=== PATIENT | female | born 1995 | race American Indian/Alaskan Native ===

== ENCOUNTER 2019-04-18 08:53 | Inpatient (IN) | payer MEDICAID ==
[2019-04-18] MEDS ORDERED: MINERAL OIL 30 ML ORAL LIQD PO PRN (10:00)
[2019-04-18] MEDS ORDERED: OXYTOCIN DRIP 30 UNITS/500 ML BAG IV SCH ×2 (10:00)
[2019-04-18] MEDS ORDERED: ePHEDrine SULFATE 50 MG/1 ML INJ IV PRN ×2 (10:00→12:55)
[2019-04-18] MEDS ORDERED: TERBUTALINE 1 MG/1 ML INJ IVP PRN (10:00)
[2019-04-18] MEDS ORDERED: LIDOCAINE (2%) 20 MG/1 ML VIAL 20 ML MDV INFILTRATI NR (10:00)
[2019-04-18] MEDS ORDERED: TERBUTALINE 1 MG/1 ML INJ SUB-Q PRN (10:00)
[2019-04-18] MEDS ORDERED: OXYTOCIN 20 UNIT/1000ML DRIP 20 UNITS/1,000 ML BAG IV SCH ×2 (10:00→11:00)
[2019-04-18] MEDS ORDERED: LACTATED RINGERS 1,000 ML IV SCH ×2 (10:00→11:00)
--- NOTE | 2019-04-18 10:07 | History and Physical Report ---
History of Present Illness Date of examination: 04/18/19 Date of admission: 04/18/19 08:54 Chief complaint: I'M having contractions History of present illness: 24 Y/O , with care at Dr. Watts's office. ZENAIDA 04/21/19. Now 39.4 weeks presents with contracts. Denies ROM, States she is GBS + Past History Past Medical History: no pertinent history Past Surgical History: no surgical history Social history: no significant social history - Obstetrical History Expected Date of Delivery: 04/21/19 Actual Gestation: 39 Week(s) 4 Day(s) : 1 Para: 0 Medications and Allergies Allergies Allergy/AdvReac Type Severity Reaction Status Date / Time No Known Allergies Allergy Verified 04/18/19 09:46 Active Meds: Active Medications Ephedrine Sulfate (Ephedrine Sulfate) 10 mg IV Q2M PRN PRN Reason: Hypotension Oxytocin/Sodium Chloride (Pitocin/Ns 20 Unit/1000ml Drip) 20 units in 1,000 mls @ 125 mls/hr IV DIRECT BARBARA Oxytocin/Sodium Chloride (Pitocin/Ns 30 Unit/500ml) 30 units in 500 mls @ 1 mls/hr IV TITR BARBARA; Protocol Oxytocin/Sodium Chloride (Pitocin/Ns 30 Unit/500ml) 30 units in 500 mls @ 999 mls/hr IV TITR BARBARA; Protocol Lactated Ringer's (Lactated Ringers) 1,000 mls @ 125 mls/hr IV DIRECT BARBARA Ampicillin Sodium (Ampicillin/Ns 2 Gm/100 Ml) 2 gm in 100 mls @ 100 mls/hr IV ONCE ONE; Protocol Stop: 04/18/19 11:29 Ampicillin Sodium (Ampicillin/Ns 1 Gm/50 Ml) 1 gm in 50 mls @ 100 mls/hr IV Q4H BARBARA; Protocol Lidocaine (Xylocaine 2%) 20 ml INFILTRATI ONCE NR Stop: 04/19/19 09:59 Mineral Oil (Mineral Oil) 30 ml PO QHS PRN PRN Reason: Constipation Terbutaline Sulfate (Brethine) 0.25 mg SUB-Q ONCE PRN PRN Reason: Hyperstimulation/Hypertonicity Terbutaline Sulfate (Brethine) 0.25 mg IVP ONCE PRN PRN Reason: Hyperstimulation/Hypertonicity Review of Systems All systems: negative - Vital Signs Vital signs: Vital Signs Pulse BP 88 121/77 04/18/19 09:25 04/18/19 09:25 Temp Pulse Resp BP Pulse Ox 88 121/77 04/18/19 09:25 04/18/19 09:25 - Physical Exam Breasts: Positive: deferred Cardiovascular: Regular rate Abdomen: Positive: normal appearance Genitourinary (Female): Positive: normal external genitalia Vulva: both: normal Vagina: Positive: normal moisture Uterus: Positive: enlarged Anus/Rectum: Positive: heme positive - Obstetrical FHR: category 1 Cervical Dilatation: 5 (exam per nurse) Cervical Effacement Percentage: 90 Uterine Contraction Pattern: Regular Uterine Contraction Intensity: Moderate Results Result Diagrams: 04/18/19 11:21 All other labs normal. Assessment and Plan A: Active labor, GBS + per pt P; Epidural Expect
[2019-04-18 10:28] LABS: Hematocrit 33.6 % (30.3-42.9); Hemoglobin 10.7 gm/dl (10.1-14.3); Mean Corpuscular HGB Conc 32 % (30-34); Mean Corpuscular Volume 75 fl (79-97); Platelet Count 303 K/mm3 (140-440); Red Blood Count 4.49 M/mm3 (3.65-5.03); Red Cell Distribution Width 15.7 % (13.2-15.2)
[2019-04-18] MEDS ORDERED: AMPICILLIN/NS 2 GM/100 ML 2 GM/100 ML BAG IV ONE (10:30)
[2019-04-18] MEDS ORDERED: fentaNYL 100 MCG/2 ML INJ IV PRN (11:00)
[2019-04-18 11:38] LABS: Hematocrit 31.9 % (30.3-42.9)
[2019-04-18] MEDS ORDERED: NALOXONE 2 MG/2 ML INJ IV PRN (12:55)
--- NOTE | 2019-04-18 12:55 | Anesthesia Consultation ---
Anesthesia Consult and Med Hx Date of service: 04/18/19 - Airway Anesthetic Teeth Evaluation: Good ROM Head & Neck: Adequate Mental/Hyoid Distance: Adequate Mallampati Class: Class II Intubation Access Assessment: Good - Pulmonary Exam CTA: Yes - Cardiac Exam Cardiac Exam: RRR - Pre-Operative Health Status ASA Pre-Surgery Classification: ASA2, Emergency Proposed Anesthetic Plan: Epidural, Spinal - Pulmonary Hx Asthma: No - Cardiovascular System Hx Hypertension: No - Central Nervous System Hx Seizures: No Hx Psychiatric Problems: No - Endocrine Hx Renal Disease: No Hx Hypothyroidism: No Hx Hyperthyroidism: No - Hematic Hx Anemia: No Hx Sickle Cell Disease: No - Other Systems Hx Alcohol Use: No
[2019-04-18] MEDS: fentaNYL-BUPIV 2 MCG/ML-0.125% 200 MCG/100 ML BAG EPIDURAL SCH ×2 (13:23→22:07)
[2019-04-18] MEDS: AMPICILLIN/NS 1 GM/50 ML 1 GM/50 ML BAG IV SCH ×3 (14:00→22:08)
--- NOTE | 2019-04-18 14:20 | Event Note ---
Date: 04/18/19 O: AROM, clear fluid, /-1, contractions every 5-6 min, CAT I A; Active labor P; Expect Pitocin augmentation
--- NOTE | 2019-04-18 19:05 | Progress Note ---
Assessment and Plan - Patient Problems (1) 39 weeks gestation of Current Visit: Yes Status: Acute (2) Active labor at term Current Visit: Yes Status: Acute Plan to address problem: Continue routine labor orders and intrauterine resuscitation measures Continue Oxytocin for labor augmentation Continue Ampicillin for GBS prophylaxis Anticipate vaginal delivery Subjective - Subjective Date of service: 04/18/19 Principal diagnosis: IUP @ 39w4d; Active Labor Interval history: see H&P and Event Note Patient reports: movement normal, other (pelvic pressure. Epidural in place) Objective - Vital Signs Vital Signs: Vital Signs - 12hr 04/18/19 04/18/19 04/18/19 09:25 10:14 10:53 Temperature 98.2 F Pulse Rate 88 82 Respiratory 16 Rate Blood Pressure 121/77 138/72 O2 Sat by Pulse Oximetry 04/18/19 04/18/19 04/18/19 11:54 11:55 11:59 Temperature Pulse Rate 91 H 81 74 Respiratory 18 Rate Blood Pressure 153/95 O2 Sat by Pulse 99 100 Oximetry 04/18/19 04/18/19 04/18/19 12:04 12:09 12:14 Temperature Pulse Rate 75 81 80 Respiratory Rate Blood Pressure O2 Sat by Pulse 97 100 100 Oximetry 04/18/19 04/18/19 04/18/19 12:19 12:24 12:29 Temperature Pulse Rate 80 110 H 90 Respiratory Rate Blood Pressure 147/82 O2 Sat by Pulse 100 74 L 99 Oximetry 04/18/19 04/18/19 04/18/19 12:35 12:40 12:45 Temperature Pulse Rate 92 H 92 H 86 Respiratory Rate Blood Pressure O2 Sat by Pulse 100 100 99 Oximetry 04/18/19 04/18/19 04/18/19 12:49 12:50 12:54 Temperature Pulse Rate 81 92 H 80 Respiratory Rate Blood Pressure 115/65 101/57 O2 Sat by Pulse 99 Oximetry 04/18/19 04/18/19 04/18/19 12:55 12:59 13:00 Temperature Pulse Rate 82 77 79 Respiratory Rate Blood Pressure 96/53 O2 Sat by Pulse 99 99 Oximetry 04/18/19 04/18/19 04/18/19 13:05 13:09 13:10 Temperature Pulse Rate 76 75 70 Respiratory Rate Blood Pressure 108/64 98/54 O2 Sat by Pulse 99 98 Oximetry 04/18/19 04/18/1904/18/19 13:14 13:15 13:20 Temperature Pulse Rate 73 75 76 Respiratory Rate Blood Pressure 96/52 O2 Sat by Pulse 99 99 Oximetry 04/18/19 04/18/19 04/18/19 13:21 13:24 13:25 Temperature Pulse Rate 75 75 69 Respiratory Rate Blood Pressure 109/64 108/65 O2 Sat by Pulse 99 Oximetry 04/18/19 04/18/19 04/18/19 13:29 13:30 13:35 Temperature Pulse Rate 77 68 78 Respiratory Rate Blood Pressure 107/67 108/70 O2 Sat by Pulse 99 99 Oximetry 04/18/19 04/18/19 04/18/19 13:40 13:41 13:45 Temperature Pulse Rate 85 82 81 Respiratory Rate Blood Pressure 123/60 123/89 O2 Sat by Pulse 99 99 Oximetry 04/18/19 04/18/19 04/18/19 13:49 13:50 13:55 Temperature Pulse Rate 81 78 74 Respiratory Rate Blood Pressure 117/78 119/76 O2 Sat by Pulse 97 99 Oximetry 04/18/19 04/18/19 04/18/19 14:00 14:05 14:09 Temperature Pulse Rate 76 83 88 Respiratory Rate Blood Pressure 124/75 119/76 119/78 O2 Sat by Pulse 99 99 Oximetry 04/18/19 04/18/19 04/18/19 14:10 14:14 14:15 Temperature Pulse Rate 91 H 102 H 100 H Respiratory Rate Blood Pressure 120/84 O2 Sat by Pulse 99 97 Oximetry 04/18/19 04/18/19 04/18/19 14:20 14:24 14:25 Temperature Pulse Rate 69 94 H 84 Respiratory Rate Blood Pressure 138/88 123/90 O2 Sat by Pulse 100 99 Oximetry 04/18/19 04/18/19 04/18/19 14:30 14:31 14:35 Temperature Pulse Rate 87 86 71 Respiratory Rate Blood Pressure 120/79 O2 Sat by Pulse 99 100 Oximetry 04/18/19 04/18/19 04/18/19 14:36 14:39 14:40 Temperature Pulse Rate 63 82 79 Respiratory Rate Blood Pressure 127/78 134/89 O2 Sat by Pulse 100 Oximetry 04/18/19 04/18/19 04/18/19 14:45 14:49 14:50 Temperature Pulse Rate 76 74 72 Respiratory Rate Blood Pressure 149/93 136/92 O2 Sat by Pulse 99 100 Oximetry 04/18/19 04/18/19 04/18/19 14:54 14:55 14:59 Temperature Pulse Rate 90 87 68 Respiratory Rate Blood Pressure 163/100 149/95 O2 Sat by Pulse 100 Oximetry 04/18/19 04/18/19 04/18/19 15:00 15:04 15:05 Temperature Pulse Rate 82 65 80 Respiratory Rate Blood Pressure 153/92 O2 Sat by Pulse 100 100 Oximetry 04/18/19 04/18/19 04/18/19 15:09 15:10 15:14 Temperature Pulse Rate 70 75 81 Respiratory Rate Blood Pressure 135/86 O2 Sat by Pulse 71 L 100 Oximetry 04/18/19 04/18/19 04/18/19 15:15 15:19 15:20 Temperature Pulse Rate 88 90 91 H Respiratory Rate Blood Pressure 131/87 O2 Sat by Pulse 100 100 Oximetry 04/18/19 04/18/19 04/18/19 15:24 15:25 15:29 Temperature Pulse Rate 76 83 88 Respiratory Rate Blood Pressure 130/86 132/83 O2 Sat by Pulse 100 Oximetry 04/18/19 04/18/19 04/18/19 15:30 15:34 15:35 Temperature Pulse Rate 97 H 100 H 89 Respiratory Rate Blood Pressure 125/85 O2 Sat by Pulse 100 100 Oximetry 04/18/19 04/18/19 04/18/19 15:39 15:40 15:45 Temperature Pulse Rate 107 H 90 92 H Respiratory Rate Blood Pressure 121/93 142/87 O2 Sat by Pulse 100 100 Oximetry 04/18/19 04/18/19 04/18/19 15:50 15:55 15:56 Temperature Pulse Rate 94 H 99 H 117 H Respiratory Rate Blood Pressure 126/66 O2 Sat by Pulse 100 100 Oximetry 04/18/19 04/18/19 04/18/19 16:00 16:04 16:05 Temperature Pulse Rate 105 H 70 100 H Respiratory Rate Blood Pressure O2 Sat by Pulse 99 70 L 100 Oximetry 04/18/19 04/18/19 04/18/19 16:09 16:10 16:15 Temperature Pulse Rate 90 92 H 90 Respiratory Rate Blood Pressure 126/79 126/81 O2 Sat by Pulse 100 100 Oximetry 04/18/19 04/18/19 04/18/19 16:19 16:20 16:24 Temperature Pulse Rate 81 112 H 100 H Respiratory Rate Blood Pressure 129/83 129/81 O2 Sat by Pulse 100 Oximetry 04/18/19 04/18/19 04/18/19 16:25 16:29 16:30 Temperature Pulse Rate 101 H 116 H 98 H Respiratory Rate Blood Pressure 121/75 O2 Sat by Pulse 100 100 Oximetry 04/18/19 04/18/19 04/18/19 16:34 16:35 16:37 Temperature Pulse Rate 94 H 93 H 114 H Respiratory Rate Blood Pressure 122/82 O2 Sat by Pulse 100 91 Oximetry 04/18/19 04/18/19 04/18/19 16:39 16:40 16:44 Temperature Pulse Rate 99 H 98 H 90 Respiratory Rate Blood Pressure 144/89 124/78 O2 Sat by Pulse 99 Oximetry 04/18/19 04/18/19 04/18/19 16:45 16:50 16:54 Temperature Pulse Rate 93 H 79 83 Respiratory Rate Blood Pressure 119/84 142/88 O2 Sat by Pulse 98 100 Oximetry 04/18/19 04/18/19 04/18/19 16:55 16:59 17:00 Temperature Pulse Rate 77 82 83 Respiratory Rate Blood Pressure 136/89 O2 Sat by Pulse 100 99 Oximetry 04/18/19 04/18/19 04/18/19 17:04 17:05 17:09 Temperature Pulse Rate 100 H 90 80 Respiratory Rate Blood Pressure 135/83 134/89 O2 Sat by Pulse 100 Oximetry 04/18/19 04/18/19 04/18/19 17:10 17:14 17:15 Temperature Pulse Rate 89 82 88 Respiratory Rate Blood Pressure 133/91 O2 Sat by Pulse 99 99 Oximetry 04/18/19 04/18/19 04/18/19 17:20 17:25 17:26 Temperature Pulse Rate 95 H 84 85 Respiratory Rate Blood Pressure 145/93 135/87 O2 Sat by Pulse 99 99 Oximetry 04/18/19 04/18/19 04/18/19 17:29 17:30 17:34 Temperature Pulse Rate 90 83 90 Respiratory Rate Blood Pressure 117/72 141/90 O2 Sat by Pulse 99 Oximetry 04/18/19 04/18/19 04/18/19 17:35 17:39 17:40 Temperature Pulse Rate 91 H 100 H 91 H Respiratory Rate Blood Pressure 134/93 O2 Sat by Pulse 99 97 Oximetry 04/18/19 04/18/19 04/18/19 17:44 17:45 17:49 Temperature Pulse Rate 97 H 94 H 93 H Respiratory Rate Blood Pressure 129/89 130/78 O2 Sat by Pulse 99 Oximetry 04/18/19 04/18/19 04/18/19 17:50 17:54 17:55 Temperature Pulse Rate 100 H 93 H 112 H Respiratory Rate Blood Pressure 131/85 O2 Sat by Pulse 100 100 Oximetry 04/18/19 04/18/19 04/18/19 17:59 18:00 18:05 Temperature Pulse Rate 96 H 84 90 Respiratory Rate Blood Pressure 138/91 127/81 O2 Sat by Pulse 99 100 Oximetry 04/18/19 04/18/19 04/18/19 18:07 18:10 18:14 Temperature Pulse Rate 98 H 87 83 Respiratory Rate Blood Pressure 126/85 140/85 O2 Sat by Pulse 90 100 Oximetry 04/18/19 04/18/19 04/18/19 18:15 18:18 18:19 Temperature Pulse Rate 102 H 92 H 93 H Respiratory Rate Blood Pressure 133/84 O2 Sat by Pulse 99 77 L Oximetry 04/18/19 04/18/19 04/18/19 18:20 18:25 18:30 Temperature Pulse Rate 82 79 79 Respiratory Rate Blood Pressure 144/86 124/78 O2 Sat by Pulse 100 100 99 Oximetry 04/18/19 04/18/19 04/18/19 18:34 18:35 18:39 Temperature Pulse Rate 75 81 83 Respiratory Rate Blood Pressure 131/82 147/89 O2 Sat by Pulse 99 Oximetry 04/18/19 04/18/19 04/18/19 18:40 18:44 18:45 Temperature Pulse Rate 79 90 87 Respiratory Rate Blood Pressure 134/91 O2 Sat by Pulse 100 99 Oximetry 04/18/19 04/18/19 04/18/19 18:50 18:54 18:55 Temperature Pulse Rate 93 H 80 83 Respiratory Rate Blood Pressure 134/83 128/73 O2 Sat by Pulse 100 100 Oximetry - Exam FHR: category 2 FHR comments: baseline 140, moderate variability, 15x15 accels, early and intermittent late decels Uterine Contraction Monitor Mode: External Cervical Dilatation: 6 Cervical Effacement Percentage: 90 station: 0 Uterine Contraction Pattern: Regular Extremities: normal - Labs Labs: Abnormal Labs 04/18/19 04/18/19 09:45 11:21 WBC 13.7 H Hgb 10.0 L MCV 75 L MCH 24 L RDW 15.7 H Laboratory Results - last 24 hr 04/18/19 04/18/19 04/18/19 09:45 09:45 11:21 WBC 13.7 H RBC 4.49 Hgb 10.7 10.0 L Hct 33.6 31.9 MCV 75 L MCH 24 L MCHC 32 RDW 15.7 H Plt Count 303 Blood Type O POSITIVE Antibody Screen Negative
[2019-04-18] MEDS ORDERED: BUPIVACAINE/PF (0.25%) 2.5 MG/ML 10 ML VIAL INFILTRATI ONE (23:15)
--- NOTE | 2019-04-19 02:19 | Procedure Note ---
OB Delivery Note - Delivery Date of Delivery: 04/19/19 Surgeon: RUTH ANN LOMAX (CNM) Estimated blood loss: 200cc - Vaginal Delivery presentation: vertex Delivery position: OA Intrapartum events: meconium (terminal meconium), shoulder dystocia Delivery induction: none Delivery augmentation: rupture of membranes, pitocin Delivery monitor: external FHT, external uterine Route of delivery: (01:20) Delivery placenta: spontaneous (01:24) Delivery cord: 3 umbilical vessels Episiotomy: none Delivery laceration: 1st degree (vaginal, perineal, left labial) Delivery repair: vicryl (3-0 CT1 & SH) Anesthesia: epidural Delivery comments: of a nonvigorous 8 lbs 1 oz female on 04/19/19 @ 01:20. After delivery of head, shoulder dystocia called and NICU notified stat. Shoulder dystocia resolved in approximately 1 min with Wyatt and suprapubic pressure. Umbilical cord double-clamped and cut and baby immediately taken to the warmer for resuscitation by NICU team. Spontaneous delivery of placenta, Jhonathan-side presenting at 01:24. Minimal lochia present. Fundal massage and IV Pitocin bolus initiated. Fundus F/ML/U. 1st degree vaginal, perineal and left labial laceration present and repaired using 3-0 CT1 & SH needles. Patient tolerated the procedure well. Placenta intact; was discarded. Mom and baby in stable condition. - A at 1 minute: 1 at 5 minutes: 9 Infant Gender: Female (8 lbs 1 oz (3654 gm), 21 in)
[2019-04-19] MEDS ORDERED: ACETAMINOPHEN 325 MG TAB PO PRN (02:23)
[2019-04-19] MEDS ORDERED: HYDROcodone/ACETAMINOPHEN 5-325 MG TAB PO PRN (02:23)
[2019-04-19] MEDS ORDERED: ONDANSETRON 4 MG/2 ML INJ IV PRN (02:23)
[2019-04-19] MEDS ORDERED: MAGNESIUM HYDROXIDE (MOM) ORAL LIQD UDC PO PRN (02:23)
[2019-04-19] MEDS ORDERED: diphenhydrAMINE 25 MG CAP PO PRN (02:23)
[2019-04-19] MEDS ORDERED: PROMETHAZINE 25 MG TAB PO PRN (02:23)
[2019-04-19] MEDS ORDERED: WITCH HAZEL/ GLYCERIN PAD TP PRN (02:23)
[2019-04-19] MEDS ORDERED: PROMETHAZINE 25 MG RECT SUPP PR PRN (02:23)
[2019-04-19] MEDS ORDERED: LANOLIN/ZINC/DIMETHICONE (LANSINOH) 7 GM TP PRN (02:23)
[2019-04-19] MEDS: IBUPROFEN 600 MG TAB PO SCH ×2 (06:18→22:27)
[2019-04-19] MEDS ORDERED: BENZOCAINE/MENTHOL 20/0.5% TOP SPRAY 56 GM TP ONE (10:28)
[2019-04-19] MEDS ORDERED: BENZOCAINE/MENTHOL 20/0.5% TOP SPRAY 56 GM TP PRN (10:30)
[2019-04-19] MEDS: FERROUS SULFATE 325 MG TAB PO SCH (11:08)
[2019-04-19] MEDS: PRENATAL VIT27-FE FUMARATE-FOLIC ACID VIT TAB PO SCH (11:08)
[2019-04-20] MEDS ORDERED: TETANUS,DIPH,PERTUSS(ACELL) VACCINE 0.5 ML SYRINGE IM ONE (06:00)
[2019-04-20 06:04] LABS: Hematocrit 28.4 % (30.3-42.9); Hemoglobin 9.1 gm/dl (10.1-14.3)
[2019-04-20] MEDS: IBUPROFEN 600 MG TAB PO SCH ×3 (06:14→15:53)
[2019-04-20] MEDS: FERROUS SULFATE 325 MG TAB PO SCH (10:07)
[2019-04-20] MEDS: PRENATAL VIT27-FE FUMARATE-FOLIC ACID VIT TAB PO SCH (10:07)
[2019-04-20] MEDS ORDERED: medroxyPROGESTERone ACETATE 150 MG/ML SYRINGE IM ONE (11:44)
--- NOTE | 2019-04-20 11:44 | Progress Note ---
Assessment and Plan A: PP Day #1 Asymptomatic Anemia P: Follow Routine Ordres FeSO4 as ordered Depo Provera 150mg IM x 1 dose prior to discharge D/C home in the AM RTO in 6 weeks Subjective - Subjective Date of service: 04/20/19 Principal diagnosis: IUP @ 39w4d; Active Labor Patient reports: appetite normal, voiding normally, pain well controlled, flatus, ambulating normally : doing well, bottle feeding Objective - Vital Signs Latest vital signs: Vital Signs Temp Pulse Resp BP BP Pulse Ox 04/20/19 07:46 98.3 F 18 105/75 04/19/19 23:35 97.8 F 67 18 108/43 97 04/19/19 16:29 98.6 F 83 18 124/86 100 04/19/19 12:34 98.9 F 18 108/77 Intake and Output 04/19/19 04/20/19 04/20/19 22:59 06:59 14:59 Intake Total 240 480 Balance 240 480 Intake: Oral 240 480 Other: Total, Intake Amount 240 240 # Voids Void 1 1 - Exam Breasts: Present: normal Cardiovascular: Present: Regular rate Lungs: Present: Clear to auscultation, Normal air movement Abdomen: Present: normal appearance, soft, normal bowel sounds Uterus: Present: normal, firm, fundal height below umbilicus Extremities: Present: normal - Labs Labs: Abnormal lab results 04/20/19 Range/Units 05:52 Hgb 9.1 L (10.1-14.3) gm/dl Hct 28.4 L (30.3-42.9) %
--- NOTE | 2019-04-20 11:47 | Discharge Summary ---
Providers - Providers Date of Admission: 04/18/19 08:54 Date of discharge: 04/21/19 Attending physician: KIRSTEN TINAJERO MD Primary care physician: KIRSTEN TINAJERO MD Hospitalization Reason for admission: active labor Delivery: Episiotomy: none Laceration: 1st degree Other procedures: none complications: none Discharge diagnosis: IUP at term delivered [place] baby: female Condition at discharge: Good Disposition: DC-01 TO HOME OR SELFCARE Plan - Provider Discharge Summary Activity: routine, no sex for 6 weeks, no heavy lifting 4 weeks, no strenuous exercise Diet: routine Instructions: routine Additional instructions: [] Smoking cessation referral if applicable(refer to patient education folder for contact #) [] Refer to [facility] Booklet Call your doctor immediately for: * Fever > 100.5 * Heavy vaginal bleeding ( >1 pad per hour) * Severe persistent headache * Shortness of breath * Reddened, hot, painful area to leg or breast * Drainage or odor from incision. * Keep incision clean and dry at all times and follow doctor's instructions regarding bathing/showering - Follow up plan Follow up: KIRSTEN TINAJERO MD [Primary Care Provider] - 6 Weeks
[2019-04-21] MEDS: IBUPROFEN 600 MG TAB PO SCH ×3 (00:03→10:47)
[2019-04-21] MEDS: PRENATAL VIT27-FE FUMARATE-FOLIC ACID VIT TAB PO SCH (10:47)
[2019-04-21] MEDS: FERROUS SULFATE 325 MG TAB PO SCH (10:47)
[2019-04-21 16:53] VITALS: BP 122/80
== END 2019-04-21 16:45 | disposition home or self-care (01) | DRG 775 ==
LOC: TRG 08:53 → LD 08:54 → TRG 08:54 → OB 04-19 04:00
PROVIDERS: ADMIT Obstetrics & Gynecology; ATTEND Obstetrics & Gynecology
PROC: 10907ZC Drainage of Amniotic Fluid, Therapeutic from Products of Conception, Via Natural or Artificial Opening (ICD-10-PCS; 2019-04-18)
PROC: 10E0XZZ Delivery of Products of Conception, External Approach (ICD-10-PCS; principal; 2019-04-19)
PROC: 0HQ9XZZ Repair Perineum Skin, External Approach (ICD-10-PCS; 2019-04-19)
PROC: 3E0R3BZ Introduction of Anesthetic Agent into Spinal Canal, Percutaneous Approach (ICD-10-PCS; 2019-04-19)
PROC: 00HU33Z Insertion of Infusion Device into Spinal Canal, Percutaneous Approach (ICD-10-PCS; 2019-04-19)
PROC: 3E0234Z Introduction of Serum, Toxoid and Vaccine into Muscle, Percutaneous Approach (ICD-10-PCS; 2019-04-20)
DX: O77.0 Labor and delivery complicated by meconium in amniotic fluid (principal); O99.02 Anemia complicating childbirth; O66.0 Obstructed labor due to shoulder dystocia; O99.824 Streptococcus B carrier state complicating childbirth; O70.0 First degree perineal laceration during delivery; Z3A.39 39 weeks gestation of pregnancy; Z37.0 Single live birth; Z23 Encounter for immunization
CPT/HCPCS: 36415; 85014; 85018; 85027; 86850; 86900; 86901; 90715; G0378; J0290; J1050; J2590; J3010; J7120